=== PATIENT | female | born 1995 | race American Indian/Alaskan Native ===

== ENCOUNTER 2021-11-25 15:08 | Emergency (ER) | payer OTHER ==
[2021-11-25] MEDS ORDERED: MECLIZINE 25 MG TAB PO ONE (17:02)
[2021-11-25 17:29] LABS: Mean Corpuscular HGB Conc 29 % (30-34); Platelet Count 469 K/mm3 (140-440); Red Blood Count 4.91 M/mm3 (3.65-5.03)
[2021-11-25 17:34] LABS: Hematocrit 27.2 % (30.3-42.9); Hemoglobin 7.9 gm/dl (10.1-14.3); Mean Corpuscular Volume 55 fl (79-97); Red Cell Distribution Width 22.9 % (13.2-15.2)
[2021-11-25 17:46] LABS: Alanine Aminotransferase 11 units/L (7-56); Albumin 4.2 g/dL (3.9-5); Blood Urea Nitrogen 6 mg/dL (7-17); Calcium 9.7 mg/dL (8.4-10.2); Hemolysis Index 6
[2021-11-25 17:58] LABS: BUN/Creatinine Ratio 10
--- NOTE | 2021-11-25 17:59 | Emergency Department Report ---
ED General Adult HPI - General Chief complaint: Abdominal Pain Stated complaint: DIZZINESS Time Seen by Provider: 11/25/21 16:47 Source: patient Mode of arrival: Ambulatory Limitations: No Limitations - History of Present Illness Initial comments: Patient is a 25-year-old female presents emergency room complaints of dizziness that began 4 days ago. She reports that it feels like the room is spinning. She states that it lasted for a few minutes and if she stays still it resolved. Patient states also for the last 4 days she has been having some lower abdominal discomfort. Patient states that she was on her menstrual cycle. Patient states that she has a history of ovarian cyst. She denies any fever, nausea, vomiting, diarrhea, urinary symptoms, vaginal discharge, chest pain, shortness of breath, palpitations. Past medical history of anemia and has previously received iron infusions. No allergies to medications. - Related Data Previous Rx's Medication Instructions Recorded Last Taken Type Docusate Sodium [Colace] 100 mg PO BID PRN #60 capsule 11/25/21 Unknown Rx Ferrous Sulfate [Ferrous Sulfate 324 mg PO DAILY #30 tablet. 11/25/21 Unknown Rx 324 MG] Meclizine [Antivert] 25 mg PO TID PRN #30 tablet 11/25/21 Unknown Rx Naproxen 375 mg PO BID PRN #14 tablet 11/25/21 Unknown Rx Allergies Allergy/AdvReac Type Severity Reaction Status Date / Time No Known Allergies Allergy Unverified 11/25/21 17:54 ED Review of Systems ROS: Stated complaint: DIZZINESS Other details as noted in HPI Comment: All other systems reviewed and negative ED Past Medical Hx - Medications Home Medications: Home Medications Medication Instructions Recorded Confirmed Last Taken Type Docusate Sodium [Colace] 100 mg PO BID PRN #60 capsule 11/25/21 Unknown Rx Ferrous Sulfate [Ferrous Sulfate 324 mg PO DAILY #30 tablet. 11/25/21 Unknown Rx 324 MG] Meclizine [Antivert] 25 mg PO TID PRN #30 tablet 11/25/21 Unknown Rx Naproxen 375 mg PO BID PRN #14 tablet 11/25/21 Unknown Rx ED Physical Exam - General Limitations: No Limitations General appearance: alert, in no apparent distress - Head Head exam: Present: atraumatic, normocephalic - Eye Eye exam: Present: normal appearance - ENT ENT exam: Present: mucous membranes moist - Respiratory Respiratory exam: Present: normal lung sounds bilaterally. Absent: respiratory distress, wheezes, rales, rhonchi, stridor, chest wall tenderness, accessory muscle use, decreased breath sounds, prolonged expiratory - Cardiovascular Cardiovascular Exam: Present: regular rate, normal rhythm, normal heart sounds. Absent: systolic murmur, diastolic murmur, rubs - GI/Abdominal GI/Abdominal exam: Present: soft, tenderness (mild suprapubic), normal bowel sounds. Absent: distended, guarding, rebound, rigid - Neurological Exam Neurological exam: Present: alert, oriented X3, CN II-XII intact, normal gait. Absent: motor sensory deficit - Psychiatric Psychiatric exam: Present: normal affect, normal mood - Skin Skin exam: Present: warm, dry, intact ED Course Vital Signs 11/25/21 15:38 Temperature 98.9 F Pulse Rate 71 Respiratory 18 Rate Blood Pressure 121/73 O2 Sat by Pulse 100 Oximetry ED Medical Decision Making - Lab Data Result diagrams: 11/25/21 17:15 11/25/21 17:15 Lab Results 11/25/21 11/25/21 11/25/21 Range/Units 17:15 17:15 17:15 WBC 7.0 (4.5-11.0) K/mm3 RBC 4.91 (3.65-5.03) M/mm3 Hgb 7.9 L (10.1-14.3) gm/dl Hct 27.2 L (30.3-42.9) % MCV 55 L (79-97) fl MCH 16 L (28-32) pg MCHC 29 L (30-34) % RDW 22.9 H (13.2-15.2) % Plt Count 469 H (140-440) K/mm3 Lymph % (Auto) [place] [facility] Seg Neutrophils % [place] [facility] Sodium 137 (137-145) mmol/L Potassium 4.1 (3.6-5.0) mmol/L Chloride 99.4 (98-107) mmol/L Carbon Dioxide 24 (22-30) mmol/L Anion Gap 18 mmol/L BUN 6 L (7-17) mg/dL Creatinine 0.6 (0.6-1.2) mg/dL Estimated GFR > 60 ml/min BUN/Creatinine Ratio 10 % Glucose 93 (65-100) mg/dL Calcium 9.7 (8.4-10.2) mg/dL Magnesium 2.00 (1.7-2.3) mg/dL Total Bilirubin 0.20 (0.1-1.2) mg/dL AST 14 (5-40) units/L ALT 11 (7-56) units/L Alkaline Phosphatase 77 (35-129) units/L Total Protein 7.9 (6.3-8.2) g/dL Albumin 4.2 (3.9-5) g/dL Albumin/Globulin Ratio 1.1 % HCG, Qual Negative (Negative) Urine Color (Yellow) Urine Turbidity (Clear) Urine pH (5.0-7.0) Ur Specific [place] (1.003-1.030) Urine Protein (Negative) mg/dL Urine Glucose (UA) (Negative) mg/dL Urine Ketones (Negative) mg/dL Urine Blood (Negative) Urine Nitrite (Negative) Urine Bilirubin (Negative) Urine Urobilinogen (<2.0) mg/dL Ur Leukocyte Esterase (Negative) Urine WBC (Auto) (0.0-6.0) /HPF Urine RBC (Auto) (0.0-6.0) /HPF U Epithel Cells (Auto) (0-13.0) /HPF Urine Mucus /HPF 11/25/21 Range/Units 17:52 WBC (4.5-11.0) K/mm3 RBC (3.65-5.03) M/mm3 Hgb (10.1-14.3) gm/dl Hct (30.3-42.9) % MCV (79-97) fl MCH (28-32) pg MCHC (30-34) % RDW (13.2-15.2) % Plt Count (140-440) K/mm3 Lymph % (Auto) Seg Neutrophils % Sodium (137-145) mmol/L Potassium (3.6-5.0) mmol/L Chloride (98-107) mmol/L Carbon Dioxide (22-30) mmol/L Anion Gap mmol/L BUN (7-17) mg/dL Creatinine (0.6-1.2) mg/dL Estimated GFR ml/min BUN/Creatinine Ratio % Glucose (65-100) mg/dL Calcium (8.4-10.2) mg/dL Magnesium (1.7-2.3) mg/dL Total Bilirubin (0.1-1.2) mg/dL AST (5-40) units/L ALT (7-56) units/L Alkaline Phosphatase (35-129) units/L Total Protein (6.3-8.2) g/dL Albumin (3.9-5) g/dL Albumin/Globulin Ratio % HCG, Qual (Negative) Urine Color Yellow (Yellow) Urine Turbidity Clear (Clear) Urine pH 6.0 (5.0-7.0) Ur Specific [place] 1.013 (1.003-1.030) Urine Protein <15 mg/dl (Negative) mg/dL Urine Glucose (UA) Neg (Negative) mg/dL Urine Ketones Neg (Negative) mg/dL Urine Blood Neg (Negative) Urine Nitrite Neg (Negative) Urine Bilirubin Neg (Negative) Urine Urobilinogen < 2.0 (<2.0) mg/dL Ur Leukocyte Esterase Neg (Negative) Urine WBC (Auto) < 1.0 (0.0-6.0) /HPF Urine RBC (Auto) 1.0 (0.0-6.0) /HPF U Epithel Cells (Auto) 1.0 (0-13.0) /HPF Urine Mucus Few /HPF - EKG Data EKG shows normal: sinus rhythm, axis, intervals, QRS complexes, ST-T waves Rate: normal - Medical Decision Making Patient is a 25-year-old female presents emergency room complaints of dizziness that began 4 days ago. She reports that it feels like the room is spinning. She states that it lasted for a few minutes and if she stays still it resolved. Patient states also for the last 4 days she has been having some lower abdominal discomfort. Patient states that she was on her menstrual cycle. Patient states that she has a history of ovarian cyst. She denies any fever, nausea, vomiting, diarrhea, urinary symptoms, vaginal discharge, chest pain, shortness of breath, palpitations. Past medical history of anemia and has previously received iron infusions. No allergies to medications. vitals are normal. on exam mild lower abd ttp, no guarding, no rebound, no rigidity, no peritoneal signs. labs with stable microcytic anemia with hemoglobin at 7.9. UA is WNL. EKG is WNL. Patient given meclizine while in the emergency department with improvement of her symptoms. She has no focal neuro deficits, no hypotension. Given that patient has microcytic anemia and history of ovarian cyst with suprapubic pain, patient will be referred to [facility] for further evaluation. Patient has no clinical signs of ovarian torsion or tubo-ovarian abscess. Discussed all results with patient. Discussed the importance of follow-up. Advised patient please take medication as prescribed. Increase your fluid intake. Follow-up with a primary care doctor. Follow-up with [facility]. Follow-up with a research nutritionist. Return to emergency room for any new or worsening symptoms. Critical care attestation.: If time is entered above; I have spent that time in minutes in the direct care of this critically ill patient, excluding procedure time. ED Disposition Clinical Impression: Dizziness, Suprapubic pain Anemia Qualifiers: Anemia type: unspecified type Qualified Code(s): D64.9 - Anemia, unspecified Disposition: HOME / SELF CARE / HOMELESS Is pt being admited?: No Does the pt Need Aspirin: No Condition: Stable Instructions: Abdominal Pain, Adult, [id number], Dizziness, [id number], Abdominal Pain (ED) Additional Instructions: please take medication as prescribed. Increase your fluid intake. Follow-up with a primary care doctor. Follow-up with [facility]. Follow-up with a research nutritionist. Return to emergency room for any new or worsening symptoms. Prescriptions: Meclizine [Antivert] 25 mg PO TID PRN #30 tablet PRN Reason: Vertigo Docusate Sodium [Colace] 100 mg PO BID PRN #60 capsule PRN Reason: constipation Ferrous Sulfate [Ferrous Sulfate 324 MG] 324 mg PO DAILY #30 tablet. Naproxen 375 mg PO BID PRN #14 tablet PRN Reason: pain Referrals: DAR MITCHELL MD [Primary Care Provider] - 3-5 Days PHOEBE KNOTT MD [Staff Physician] - 3-5 Days EMILE CORONA MD [Staff Physician] - 3-5 Days Time of Disposition: 18:44 Print Language: SYRIAN
[2021-11-25 18:16] VITALS: BP 121/73
[2021-11-25 18:32] LABS: Bilirubin,Urine NEG (Negative); Blood,Urine NEG (Negative); Color,Urine Yellow (Yellow); Mucus,Urine FEW /HPF; Protein,Urine <15 mg/dL mg/dL (Negative); Urobilinogen,Urine < 2.0 mg/dL (<2.0); WBC,Urine < 1.0 /HPF (0.0-6.0)
[2021-11-25 21:57] LABS: Hypochromasia 3+; Total Cells Counted 100
[2021-11-25 21:58] LABS: Anisocytosis 1+; Ovalocytes 1+; Platelet Estimate Consistent w Auto; Target Cells Few
--- NOTE | 2021-11-26 12:12 | Electrocardiograph Report ---
[facility] Test Date: 2021-11-25 Test Time: 18:07:19 Pat Name: AIDA UNDERWOOD Department: Room: Gender: F Management Engineer: GUANACO : 1995 Requested By: EVERETTE NORTH Order Number: [id number] Reading MD: Terrance Bach Measurements Intervals [place] Rate: 66 P: 46 ID: [id number] QRS: 45 QRSD: 75 T: 43 QT: 388 QTc: 405 Interpretive Statements Sinus rhythm No previous ECG available for comparison Electronically Signed On 11-26-2021 12:12:16 EST by Terrance Bach
== END 2021-11-25 19:00 | disposition home or self-care (01) ==
LOC: ED 15:08
DX: D64.9 Anemia, unspecified (principal); R10.30 Lower abdominal pain, unspecified; Z79.899 Other long term (current) drug therapy
CPT/HCPCS: 36415; 80053; 81001; 83735; 84703; 85007; 85025; 93005; 99283